=== PATIENT | female | born 1995 | race Two or more races ===

== ENCOUNTER 2018-02-28 02:05 | Emergency (ER) | payer OTHER ==
[~2018-02-28] VITALS: Ht 165.1 cm; Wt 78.9 kg
[~2018-02-28 02:05] MED LIST: KETO10TA2 PO; PRENATAL 19 TA1 EAC1 PO
[2018-02-28] MEDS ORDERED: PERCOCET 5-3251 EACH PO (06:51)
== END 2018-02-28 07:31 | disposition home or self-care (01) ==
LOC: ER 02:05
DX: O02.1 Missed abortion (principal); R10.2 Pelvic and perineal pain

== ENCOUNTER 2018-03-02 07:17 | Inpatient (IN) | payer OTHER ==
[~2018-03-02] VITALS: Ht 165.1 cm; Wt 78.9 kg
[~2018-03-02 07:17] MED LIST changes: +PERCOCET 5-3251 EACH PO
== END 2018-03-03 19:49 | disposition home or self-care (01) | DRG 807 ==
LOC: LDR 07:17 → OB/GYN 03-03 10:34
PROC: 10E0XZZ Delivery of Products of Conception, External Approach (ICD-10-PCS; principal; 2018-03-02)
PROC: 4A1HXCZ Monitoring of Products of Conception, Cardiac Rate, External Approach (ICD-10-PCS; 2018-03-02)
PROC: 3E0P7VZ Introduction of Hormone into Female Reproductive, Via Natural or Artificial Opening (ICD-10-PCS; 2018-03-02)
PROC: 3E033VJ Introduction of Other Hormone into Peripheral Vein, Percutaneous Approach (ICD-10-PCS; 2018-03-02)
DX: O02.1 Missed abortion (principal); Z37.1 Single stillbirth; Z3A.17 17 weeks gestation of pregnancy

== ENCOUNTER 2018-07-30 23:42 | Emergency (ER) | payer OTHER ==
[~2018-07-30] VITALS: Ht 157.5 cm; Wt 65.8 kg
== END 2018-07-31 04:57 | disposition home or self-care (01) ==
LOC: ER 23:42
DX: O26.891 Other specified pregnancy related conditions, first trimester (principal); R10.2 Pelvic and perineal pain; Z34.01 Encounter for supervision of normal first pregnancy, first trimester

== ENCOUNTER 2018-09-03 15:45 | Emergency (ER) | payer OTHER ==
[~2018-09-03] VITALS: Ht 165.1 cm; Wt 78.9 kg
== END 2018-09-03 21:14 | disposition home or self-care (01) ==
LOC: ER 15:45
DX: O26.892 Other specified pregnancy related conditions, second trimester (principal); R10.2 Pelvic and perineal pain; Z34.82 Encounter for supervision of other normal pregnancy, second trimester

== ENCOUNTER 2018-09-17 15:49 | Emergency (ER) | payer OTHER ==
[~2018-09-17] VITALS: Ht 165.1 cm; Wt 78.9 kg
[2018-09-17] MEDS ORDERED: PANADOL EXTRA500 MG (17:23)
== END 2018-09-17 21:30 | disposition home or self-care (01) ==
LOC: ER 15:49
DX: B34.9 Viral infection, unspecified (principal)

== ENCOUNTER 2018-10-06 11:15 | Outpatient (CLI) | payer OTHER ==
[~2018-10-06 11:15] MED LIST changes: +PANADOL EXTRA500 MG
== END 2018-10-07 12:57 | disposition home or self-care (01) ==
LOC: OBS/DEL 11:15
DX: O26.892 Other specified pregnancy related conditions, second trimester (principal); K52.89 Other specified noninfective gastroenteritis and colitis; Z34.02 Encounter for supervision of normal first pregnancy, second trimester

== ENCOUNTER 2018-12-25 22:02 | Emergency (ER) | payer OTHER ==
[~2018-12-25] VITALS: Ht 165.1 cm; Wt 87.5 kg
[2018-12-26] MEDS ORDERED: INTESTINEX680 M1 PO (04:04)
== END 2018-12-26 04:09 | disposition home or self-care (01) ==
LOC: ER 22:02
DX: O26.893 Other specified pregnancy related conditions, third trimester (principal); R53.1 Weakness; M54.5 Low back pain; Z34.83 Encounter for supervision of other normal pregnancy, third trimester

== ENCOUNTER 2019-01-25 14:45 | Inpatient (IN) | payer OTHER ==
[~2019-01-25] VITALS: Ht 165.1 cm; Wt 90.7 kg
[~2019-01-25 14:45] MED LIST changes: +INTESTINEX680 M1 PO
== END 2019-02-04 17:04 | DRG 788 ==
LOC: O/R 14:45 → OB/GYN 02-01 06:25 → O/R 02-01 06:25 → OB/GYN 02-01 14:45
PROVIDERS: ADMIT Specialist
PROC: 4A1HXCZ Monitoring of Products of Conception, Cardiac Rate, External Approach (ICD-10-PCS; 2019-02-01)
PROC: 4A033R1 Measurement of Arterial Saturation, Peripheral, Percutaneous Approach (ICD-10-PCS; 2019-02-01)
PROC: 10D00Z1 Extraction of Products of Conception, Low, Open Approach (ICD-10-PCS; principal; 2019-02-01 10:15)
DX: O82 Encounter for cesarean delivery without indication (principal); O34.211 Maternal care for low transverse scar from previous cesarean delivery; Z3A.39 39 weeks gestation of pregnancy; Z37.0 Single live birth